=== PATIENT | female | born 1995 | race Caucasian/White ===

== ENCOUNTER 2019-01-19 10:46 | Emergency (ER) | payer OTHER ==
[~2019-01-19] VITALS: Ht 152.4 cm; Wt 70.3 kg
[2019-01-19] MEDS ORDERED: NAPROSYN500 MG PO (12:39)
[2019-01-19] MEDS ORDERED: NORFLEX100 MG PO (12:39)
[2019-01-19 12:40] VITALS: BP 117/79
== END 2019-01-19 12:50 | disposition home or self-care (01) ==
LOC: ER 10:46
DX: S29.012A Strain of muscle and tendon of back wall of thorax, initial encounter (principal); V89.2XXA Person injured in unspecified motor-vehicle accident, traffic, initial encounter; Y92.89 Other specified places as the place of occurrence of the external cause; Y93.89 Activity, other specified; Y99.8 Other external cause status